=== PATIENT | male | born 1975 | race Caucasian/White ===

== ENCOUNTER 2021-11-18 20:26 | Emergency (ER) | payer OTHER, BC ==
--- NOTE | 2021-11-18 21:00 | ED General ---
General Chief Complaint: Substance Abuse Stated Complaint: N/V Nursing Triage Note: Pt presents by ems after vomiting from alcohol intoxication. Pt states he had about 750ml of moonshine as well as other shots of hard liquor. Source of Information: Patient Exam Limitations: No Limitations History of Present Illness Date Seen by Provider: Nov 18, 2021 Time Seen by Provider: 20:32 Initial Comments 46-year-old male with past medical history of hypertension [place] was drinking too much and started vomiting. He says he was celebrating a friend's 28th birthday, and had about 750 mL of liquor around 2 PM today. Around 3 PM he says he started gagging himself so that he would throw up. The vomiting would not slow down so that is why they called an ambulance. It was nonbloody and nonbilious vomit. He says right now he feels really close to his baseline and feels close to being sober. He no longer feels nauseous. He is otherwise denying any other acute complaints. EMS reports normal vitals, they placed an IV, given 2 L of IV fluids Allergies and Home Medications Allergies Coded Allergies: No Known Drug Allergies (Unverified , 11/18/21) Patient Home Medication List Home Medication List Reviewed: Yes Review of Systems Review of Systems Constitutional: No fever EENTM: No blurred vision Respiratory: no symptoms reported Cardiovascular: no symptoms reported Gastrointestinal: vomiting Genitourinary: no symptoms reported Musculoskeletal: no symptoms reported Skin: no symptoms reported Psychiatric/Neurological: No Symptoms Reported Hematologic/Lymphatic: No Symptoms Reported Immunological/Allergic: no symptoms reported All Other Systems Reviewed Negative Unless Noted: Yes Past Oxyohgg-Ormhuu-Uyysoz Hx Patient Social History Tobacco Use?: No Use of E-Cig and/or Vaping dev: No Substance use?: No Alcohol Use?: Yes Alcohol type: Hard Liquor Pt feels they are or have been: No Past Medical History Surgeries: No Physical Exam Vital Signs Vital Signs - First Documented 11/18/21 20:39 Temp 37.1 Pulse 76 Resp 18 B/P (MAP) 147/75 (99) Pulse Ox 99 O2 Delivery Room Air Capillary Refill : Less Than 3 Seconds Height, Weight, BMI Height: '" Weight: lbs. oz. kg; BMI Method: General Appearance: No Apparent Distress, WD/WN HEENT: PERRL/EOMI, Normal ENT Inspection, Pharynx Normal Neck: Full Range of Motion, Normal Inspection, Non Tender, Supple Respiratory: Chest Non Tender, Lungs Clear, Normal Breath Sounds, No Accessory Muscle Use, No Respiratory Distress Cardiovascular: Regular Rate, Rhythm, No Edema, Normal Peripheral Pulses Gastrointestinal: Normal Bowel Sounds, Non Tender, Soft; No Distended, No Guarding Back: Normal Inspection, No CVA Tenderness Extremity: Normal Capillary Refill, Normal Inspection, Normal Range of Motion, Non Tender, No Calf Tenderness, No Pedal Edema Neurologic/Psychiatric: Alert, Oriented x3, No Motor/Sensory Deficits, Normal Mood/Affect Skin: Normal Color, Warm/Dry Lymphatic: No Adenopathy Progress/Results/Core Measures Suspected Sepsis SIRS Temperature: Pulse: 76 Respiratory Rate: 18 Blood Pressure 147 /75 Mean: 99 Results/Orders Vital Signs/I&O 11/18/21 20:39 Temp 37.1 Pulse 76 Resp 18 B/P (MAP) 147/75 (99) Pulse Ox 99 O2 Delivery Room Air Capillary Refill : Less Than 3 Seconds Blood Pressure Mean: 99 Progress Note : Progress Note 46-year-old male with above history coming in due to alcohol intoxication. ABCs were intact and vitals were stable on presentation. Physical exam reassuring including a nonfocal neurologic exam. The patient is alert and oriented, not slurring words at all, ambulating without difficulty, and is clinically sober. Additionally, his is here who is sober and is able to take him home to sleep. I believe he is stable for discharge with outpatient follow-up. He was sent home with strict return precautions Departure Impression Primary Impression: Acute alcoholic intoxication Qualified Codes: F10.920 - Alcohol use, unspecified with intoxication, uncomplicated Disposition: HOME, SELF-CARE Condition: Improved Departure-Patient Inst. Decision time for Depature: 20:59 Referrals: NO,LOCAL PHYSICIAN (PCP/Family) Primary Care Physician Patient Instructions: ALCOHOL AND SUBSTANCE ABUSE Add. Discharge Instructions: Drink plenty of fluids and get plenty of rest tonight. Take Tylenol and/or ibuprofen tomorrow as needed for headache. JAMISON WHALEN MD Nov 18, 2021 20:59
[2021-11-18 21:01] VITALS: BP 147/75
== END 2021-11-18 21:07 | disposition home or self-care (01) ==
LOC: ER FS 20:37
DX: F10.129 Alcohol abuse with intoxication, unspecified (principal)
CPT/HCPCS: 99283